=== PATIENT | male | born 1955 | race Two or more races ===

== ENCOUNTER 2020-09-21 07:48 | Outpatient (CLI) | payer MEDICARE ==
[2020-09-21] MEDS ORDERED: ATOR20TA37 PO (08:38)
[2020-09-21] MEDS ORDERED: ASPI81TA45 PO (08:38)
== END 2020-09-21 23:59 | disposition home or self-care (01) ==
LOC: STAR 07:48
PROVIDERS: ATTEND Urology
DX: Z01.818 Encounter for other preprocedural examination (principal); N20.0 Calculus of kidney
CPT/HCPCS: 93005

== ENCOUNTER 2020-09-26 05:40 | Day surgery (SDC) | payer MEDICARE ==
[~2020-09-26] VITALS: Ht 180.3 cm; Wt 86.3 kg
[~2020-09-26 05:40] MED LIST: ASPI81TA45 PO; ATOR20TA37 PO
[2020-09-26 06:17] VITALS: BP 119/78
[2020-09-26] MEDS ORDERED: CHLORHEXIDINE 15 ML UDC MM ONE (06:30)
[2020-09-26] MEDS ORDERED: LACTATED RINGERS 1,000 ML IV SCH (06:30)
[2020-09-26] MEDS ORDERED: MIDAZOLAM 1 MG/ML, 2ML ONE (07:10)
[2020-09-26] MEDS ORDERED: PROPOFOL 50 ML ONE (07:10)
[2020-09-26] MEDS ORDERED: FENTANYL PF 250 MCG/5ML ONE (07:10)
[2020-09-26] MEDS ORDERED: SUCCINYLCHOLINE 20 MG/ML, 10ML ONE (07:31)
[2020-09-26] MEDS ORDERED: ROCURONIUM 10MG/ML,5ML ONE (07:31)
[2020-09-26] MEDS ORDERED: ONDANSETRON 2MG/ML, 2ML ONE (07:31)
[2020-09-26] MEDS ORDERED: DEXAMETHASONE 4 MG/ML, 1ML ONE (07:31)
[2020-09-26] MEDS ORDERED: LABETALOL 5MG/ML, 20ML IV PRN (08:00)
[2020-09-26] MEDS ORDERED: PROMETHAZINE 25 MG/ML, 1ML IVPush PRN (08:00)
[2020-09-26] MEDS ORDERED: DIAZEPAM 5 MG/ML, 2ML IVPush PRN (08:00)
[2020-09-26] MEDS ORDERED: FENTANYL PF 100 MCG/2ML IV PRN (08:00)
[2020-09-26] MEDS ORDERED: EPHEDRINE 50 MG/ML, 1ML IM PRN (08:00)
[2020-09-26] MEDS ORDERED: MEPERIDINE/PF 25MG/0.5ML IVPush PRN (08:00)
[2020-09-26] MEDS ORDERED: OXYcodone 5 MG/5 ML ORAL.SOL UDC PO PRN (08:00)
[2020-09-26] MEDS ORDERED: ACETAMINOPHEN 325 MG TABLET PO PRN (08:00)
[2020-09-26] MEDS ORDERED: EPHEDRINE 50 MG/ML, 1ML IVPush PRN (08:00)
[2020-09-26] MEDS ORDERED: ONDANSETRON 2MG/ML, 2ML IVPush PRN (08:00)
[2020-09-26] MEDS ORDERED: DIPHENHYDRAMINE 50 MG/ML, 1ML IVPush PRN (08:00)
[2020-09-26] MEDS ORDERED: morphine SULFATE 10 MG/ML, 1ML IVPush PRN (08:00)
== END 2020-09-26 11:45 | disposition home or self-care (01) ==
LOC: OUT 05:40
PROVIDERS: ATTEND Urology
DX: N20.0 Calculus of kidney (principal)
CPT/HCPCS: 50590; J0330; J1100; J2250; J2405; J2704; J3010; J7120